=== PATIENT | male | born 1970 | race Hispanic/Latino ===

== ENCOUNTER 2017-07-14 23:10 | Inpatient (IN) | payer BC ==
[~2017-07-14] VITALS: Ht 175.3 cm; Wt 108.4 kg
[2017-07-15] VITALS (20 sets, daily range): BP systolic 123–168; BP diastolic 68–98
[2017-07-15] MEDS ORDERED: HEPARIN 25000 UNITS/250 ML D5W 250 ML IV ONE (01:29)
[2017-07-15] MEDS ORDERED: HEPARIN SODIUM 5000UNIT/ML 1ML VIAL ONE (01:39)
[2017-07-15 05:56] LABS: CHOLESTEROL 181 mg/dL (<200); HDL CHOLESTEROL 24 mg/dL (29-71); LDL DIRECT 139 mg/dL (0-99); TRIGLYCERIDES 146 mg/dL (30-200)
[2017-07-15] MEDS ORDERED: ATEN50TA PO (07:38)
[2017-07-15] MEDS: FAMOTIDINE 20MG TAB 20 MG TAB PO SCH (08:30)
[2017-07-15 10:24] LABS: BASOPHILS % (AUTO) 0.5 % (0.0-5.0); EOSINOPHILS % (AUTO) 1.1 % (0.0-8.0); HEMATOCRIT 43.9 % (42-54); LYMPHOCYTES % (AUTO) 27.7 % (21.0-51.0); MEAN CORPUSCULAR HEMOGLOBIN 31.6 pg (27.0-33.0); MEAN CORPUSCULAR HGB CONC 35.1 g/dL (32.0-36.0); MEAN CORPUSCULAR VOLUME 90.1 fL (79-99); MONOCYTES % (AUTO) 7.5 % (3.0-13.0); NEUTROPHILS % (AUTO) 63.2 % (40.0-77.0); PLATELET COUNT (AUTO) 227 K/uL (130-400); RED BLOOD CELL COUNT(AUTO) 4.88 MIL/uL (4.50-6.20); RED CELL DISTRIBUTION WIDTH 12.9 % (11.0-15.5); WHITE BLOOD COUNT (AUTO) 10.6 K/uL (4.8-10.8)
[2017-07-15 10:38] LABS: CREATININE 0.8 mg/dL (0.5-1.5); POTASSIUM 4.3 mmol/L (3.5-5.1)
[2017-07-15 10:44] LABS: ALBUMIN 3.4 g/dL (3.5-5.0); BILIRUBIN,TOTAL 1.1 mg/dL (0.2-1.0); TOTAL PROTEIN, SERUM 7.3 g/dL (6.0-8.3)
[2017-07-15] MEDS ORDERED: PHARMACY COMMUNICATION MISC SCH (12:00)
[2017-07-15] MEDS ORDERED: ALTEPLASE 100 MG VIAL IVP SCH (12:15)
[2017-07-15] MEDS ORDERED: ISOVUE-300 100 ML VIAL IV ONE (12:21)
[2017-07-15] MEDS ORDERED: LIDOCAINE HCL 1% MDV 50ML VIAL ONE (12:47)
[2017-07-15] MEDS ORDERED: HYDRALAZINE HCL 20 MG/ML VIAL ONE (13:31)
[2017-07-15 15:54] LABS: HEMATOCRIT 45.1 % (42-54)
[2017-07-15 16:05] LABS: PARTIAL THROMBOPLASTIN TIME 29.6 SEC (26.3-35.5); PROTHROMBIN TIME 10.5 SEC (9.6-11.6)
[2017-07-15] MEDS: HYDRALAZINE HCL 20 MG/ML VIAL IV PRN (17:42)
[2017-07-15 19:00] LABS: HEMATOCRIT 46.4 % (42-54)
[2017-07-15] MEDS ORDERED: ATENOLOL 50 MG TABLET ONE (19:49)
[2017-07-15] MEDS: ATORVASTATIN CALCIUM 20 MG TABLET PO SCH (19:59)
[2017-07-15 22:19] LABS: HEMATOCRIT 44.2 % (42-54)
[2017-07-16] VITALS (17 sets, daily range): BP systolic 113–155; BP diastolic 63–94
[2017-07-16 02:43] LABS: BASOPHILS % (AUTO) 0.3 % (0.0-5.0); EOSINOPHILS % (AUTO) 0.8 % (0.0-8.0); LYMPHOCYTES % (AUTO) 20.7 % (21.0-51.0); MEAN CORPUSCULAR HEMOGLOBIN 31.4 pg (27.0-33.0); MEAN CORPUSCULAR HGB CONC 34.9 g/dL (32.0-36.0); MEAN CORPUSCULAR VOLUME 89.9 fL (79-99); MONOCYTES % (AUTO) 8.5 % (3.0-13.0); NEUTROPHILS % (AUTO) 69.7 % (40.0-77.0); PLATELET COUNT (AUTO) 207 K/uL (130-400); RED CELL DISTRIBUTION WIDTH 12.9 % (11.0-15.5); WHITE BLOOD COUNT (AUTO) 10.4 K/uL (4.8-10.8)
[2017-07-16 02:51] LABS: CREATININE 0.7 mg/dL (0.5-1.5); MAGNESIUM 1.9 mg/dL (1.80-2.40); POTASSIUM 3.8 mmol/L (3.5-5.1)
[2017-07-16 05:59] LABS: HEMATOCRIT 45.4 % (42-54)
[2017-07-16] MEDS: FAMOTIDINE 20MG TAB 20 MG TAB PO SCH (08:54)
[2017-07-16] MEDS: ATENOLOL 50 MG TABLET PO SCH (09:05)
[2017-07-16 10:16] LABS: HEMATOCRIT 45.3 % (42-54)
[2017-07-16] MEDS ORDERED: HEPARIN 25000 UNITS/250 ML D5W 250 ML IV PRN (10:45)
[2017-07-16] MEDS ORDERED: ISOVUE-300 100 ML VIAL IV ONE (15:09)
[2017-07-16] MEDS ORDERED: LIDOCAINE HCL 1% MDV 50ML VIAL ONE (15:09)
[2017-07-16] MEDS ORDERED: HEPARIN SODIUM 1000UNIT/ML 10ML VIAL ONE (15:09)
[2017-07-16] MEDS ORDERED: CEFAZOLIN SODIUM 1 GM VIAL ONE (15:09)
[2017-07-16] MEDS ORDERED: MIDAZOLAM HCL 1 MG/ML 2ML VIAL ONE (15:10)
[2017-07-16] MEDS ORDERED: FENTANYL CITRATE PF 50 MCG/1 ML 2ML VIAL ONE (15:10)
[2017-07-16] MEDS ORDERED: HEPARIN SODIUM 5000UNIT/ML 1ML VIAL SQ PRN (17:00)
[2017-07-16 17:08] LABS: BASOPHILS % (AUTO) 0.6 % (0.0-5.0); EOSINOPHILS % (AUTO) 0.7 % (0.0-8.0); HEMATOCRIT 47.6 % (42-54); LYMPHOCYTES % (AUTO) 18.4 % (21.0-51.0); MEAN CORPUSCULAR HEMOGLOBIN 31.3 pg (27.0-33.0); MEAN CORPUSCULAR HGB CONC 34.5 g/dL (32.0-36.0); MEAN CORPUSCULAR VOLUME 90.9 fL (79-99); MONOCYTES % (AUTO) 8.5 % (3.0-13.0); NEUTROPHILS % (AUTO) 71.8 % (40.0-77.0); PLATELET COUNT (AUTO) 201 K/uL (130-400); RED BLOOD CELL COUNT(AUTO) 5.23 MIL/uL (4.50-6.20); RED CELL DISTRIBUTION WIDTH 13.1 % (11.0-15.5); WHITE BLOOD COUNT (AUTO) 11.2 K/uL (4.8-10.8)
[2017-07-16 17:18] LABS: INR 1.16 (0.85-1.15); PARTIAL THROMBOPLASTIN TIME 30.1 SEC (26.3-35.5); PROTHROMBIN TIME 12.1 SEC (9.6-11.6)
[2017-07-16] MEDS: HEPARIN 25000 UNITS/250 ML D5W 250 ML IV SCH (17:36)
[2017-07-16] MEDS: ATORVASTATIN CALCIUM 20 MG TABLET PO SCH (20:42)
[2017-07-17] VITALS (7 sets, daily range): BP systolic 120–166; BP diastolic 72–97
[2017-07-17] MEDS: HEPARIN 25000 UNITS/250 ML D5W 250 ML IV SCH (03:46)
[2017-07-17 07:19] LABS: BASOPHILS % (AUTO) 0.5 % (0.0-5.0); EOSINOPHILS % (AUTO) 1.4 % (0.0-8.0); HEMATOCRIT 46.3 % (42-54); LYMPHOCYTES % (AUTO) 23.8 % (21.0-51.0); MEAN CORPUSCULAR HEMOGLOBIN 31.9 pg (27.0-33.0); MEAN CORPUSCULAR HGB CONC 34.9 g/dL (32.0-36.0); MEAN CORPUSCULAR VOLUME 91.2 fL (79-99); MONOCYTES % (AUTO) 7.9 % (3.0-13.0); NEUTROPHILS % (AUTO) 66.4 % (40.0-77.0); PLATELET COUNT (AUTO) 208 K/uL (130-400); RED BLOOD CELL COUNT(AUTO) 5.08 MIL/uL (4.50-6.20); RED CELL DISTRIBUTION WIDTH 12.9 % (11.0-15.5); WHITE BLOOD COUNT (AUTO) 11.2 K/uL (4.8-10.8)
[2017-07-17 07:30] LABS: CREATININE 0.9 mg/dL (0.5-1.5); POTASSIUM 4.2 mmol/L (3.5-5.1)
[2017-07-17] MEDS: ATENOLOL 50 MG TABLET PO SCH (10:10)
[2017-07-17] MEDS ORDERED: ENOXAPARIN SODIUM 1 MG/KG SQ SCH (10:45)
[2017-07-17] MEDS: ENOXAPARIN SODIUM 120 MG/0.8ML SQ SCH ×2 (11:26→20:25)
[2017-07-17] MEDS: ATORVASTATIN CALCIUM 20 MG TABLET PO SCH (20:18)
[2017-07-17] MEDS: HYDRALAZINE HCL 20 MG/ML VIAL IV PRN (20:22)
[2017-07-17] MEDS ORDERED: ENOXAPARIN SODIUM 120 MG/0.8ML SQ SCH ×2 (21:00)
[2017-07-18 04:07] VITALS: BP 153/93
[2017-07-18 07:39] VITALS: BP 131/63
[2017-07-18] MEDS: ENOXAPARIN SODIUM 120 MG/0.8ML SQ SCH (08:42)
[2017-07-18] MEDS: ATENOLOL 50 MG TABLET PO SCH (08:42)
[2017-07-18 11:30] VITALS: BP 143/81
[2017-07-18 12:48] LABS: CREATININE 0.9 mg/dL (0.5-1.5); POTASSIUM 4.3 mmol/L (3.5-5.1)
[2017-07-18] MEDS ORDERED: RIVAROXABAN 15 MG TABLET ONE (14:43)
== END 2017-07-18 15:05 | disposition home or self-care (01) | DRG 254 ==
LOC: OBSVTOIN 23:49 → 4CH 23:49 → 2CH 07-15 14:26 → 2DH 07-16 20:03
PROVIDERS: ADMIT Family Medicine; ATTEND Family Medicine
PROC: 04CM0ZZ Extirpation of Matter from Right Popliteal Artery, Open Approach (ICD-10-PCS; 2017-07-15)
PROC: 04CK0ZZ Extirpation of Matter from Right Femoral Artery, Open Approach (ICD-10-PCS; 2017-07-15)
PROC: 0JPW3XZ Removal of Tunneled Vascular Access Device from Lower Extremity Subcutaneous Tissue and Fascia, Percutaneous Approach (ICD-10-PCS; principal; 2017-07-16)
PROC: B51B1ZZ Fluoroscopy of Right Lower Extremity Veins using Low Osmolar Contrast (ICD-10-PCS; 2017-07-18)
PROC: 3E03317 Introduction of Other Thrombolytic into Peripheral Vein, Percutaneous Approach (ICD-10-PCS; 2017-07-18)
DX: I82.431 Acute embolism and thrombosis of right popliteal vein (principal); I82.411 Acute embolism and thrombosis of right femoral vein; E66.01 Morbid (severe) obesity due to excess calories; F17.210 Nicotine dependence, cigarettes, uncomplicated; I10 Essential (primary) hypertension; Z86.718 Personal history of other venous thrombosis and embolism; Z68.35 Body mass index [BMI] 35.0-35.9, adult
CPT/HCPCS: 36005; 36415; 37184; 37212; 37214; 75820; 80048; 80053; 80061; 83735; 85014; 85018; 85025; 85384; 85610; 85730; 93971; C1751; C1757; C1769; C1894; J0360; J0690; J1644; J1650; J2250; J2997; J3010; J3490; Q9967